=== PATIENT | male | born 1950 | race Caucasian/White ===

== ENCOUNTER 2023-08-15 08:52 | Outpatient (CLI) | payer MEDICARE, SELFPAY ==
--- NOTE | 2023-08-15 09:07 | ECG_ITS ---
Measurements Intervals [place] Rate: 93 P: 77 MD: 164 QRS: -46 QRSD: 150 T: 26 QT: 432 QTc: 539 Interpretive Statements SINUS RHYTHM VENTRICULAR PREMATURE COMPLEX RIGHT BUNDLE BRANCH BLOCK LEFT ANTERIOR FASCICULAR BLOCK BASELINE ARTIFACT- I, III, AVR, AVL, AVF, V1-V3 ABNORMAL ECG NO PREVIOUS ECG AVAILABLE FOR COMPARISON Electronically Signed On 08-15-2023 9:55:21 [employer] by Jackson Garcia D.O.
[2023-08-15 09:28] LABS: Basophils Percent Auto 0.5 % (0.2-1.2); Eosinophils Absolute Auto 0.3 K/mm3 (0-0.3); Eosinophils Percent Auto 4.1 % (0-4.4); Hematocrit 32.2 % (42.0-52.0); Hemoglobin 9.6 g/dL (14.0-18.0); Immature Granulocyte Absolute 0.09 K/mm3 (0.00-0.031); Immature Granulocyte Percent A 1.1 % (0-0.5); Lymphocytes Absolute Auto 1.11 K/mm3 (0.9-3.2); Lymphocytes Percent Auto 13.4 % (18.3-44.2); Mean Corpuscular HGB Conc 29.8 g/dl (32-36); Mean Corpuscular Hemoglobin 27.7 pg (26-34); Mean Corpuscular Volume 92.8 fl (80-100); Monocytes Absolute Auto 0.9 K/mm3 (0.1-0.6); Monocytes Percent Auto 10.9 % (2.6-8.5); Neutrophils Absolute Auto 5.8 K/mm3 (1.3-6.7); Platelet Count Result 265 k/mm3 (150-375); Red Blood Count 3.47 M/mm3 (4.6-6.20); Red Cell Distribution Width 16.7 % (11.5-14.5); White Blood Count 8.3 K/mm3 (4.5-10.0)
[2023-08-15 09:37] LABS: Anion Gap 12 mmol/L (8-16); Blood Urea Nitrogen 46 mg/dL (9-20); Carbon Dioxide 23 mmol/L (22-30); Chloride 98 mmol/L (98-107); Estimated Glomerular Filt Rate 16; Glucose 336 mg/dL (65-110); Potassium 3.4 mmol/L (3.4-5.0); Sodium 133 mmol/L (137-145)
[2023-08-15 09:38] LABS: INR 1.1; Prothrombin Time 14.3 Seconds (11.1-14.7)
[2023-08-15 09:39] LABS: Partial Thromboplastin Time 32.3 SECONDS (22.3-36.8)
== END 2023-08-15 08:53 | disposition home or self-care (01) ==
LOC: ANHSURGERY 08:59
PROVIDERS: PCP Family Medicine Sports Medicine; Visit Provider Urology
DX: Z01.818 Encounter for other preprocedural examination (principal); I45.2 Bifascicular block; R94.31 Abnormal electrocardiogram [ECG] [EKG]; I10 Essential (primary) hypertension; N40.0 Benign prostatic hyperplasia without lower urinary tract symptoms
CPT/HCPCS: 36415; 80048; 85025; 85610; 85730; 87086; 87088; 93005

== ENCOUNTER 2023-08-22 00:31 | Day surgery (SDC) | payer MEDICARE, SELFPAY ==
[2023-08-14 12:18] VITALS: BMI 20.9
--- NOTE | 2023-08-14 12:45 | PC.NURSE ---
Report to the Outpatient Waiting Room, entrance under the green pavilion located off [facility], at time __6:30AM on date __08/22/23 . Planned Procedure Time: __8:30AM . Time changes happen often and if your time is changed the preop area will call you the afternoon before. - You and your visitor will be asked to self-screen and do not enter if you have any COVID symptoms. - A mask is optional within the hospital at this time. Patients may have clear liquids (water, carbonated beverages, clear teas, apple juice) until 3 hours prior to surgery with a maximum of 20 ounces. - No food from midnight until time of surgery. Take the following medications with a SIP of water the morning of surgery: ___NONE DO NOT STOP ANY OF YOUR OTHER PRESCRIPTION MEDICATIONS PRIOR TO SURGERY ?EXCEPT THE FOLLOWING Medications to discontinue per physician ___HOLD ALL VITAMINS/SUPPLEMENTS 3 DAYS PRE-OP PER ANESTHESIA Date to take last dose__08/18/23 Please no make-up, nail [place], hairspray, perfume, deodorant, or body powder the day of surgery. No jewelry (including any body piercings) or valuables the day of surgery, leave them at home. Please take a shower or bath the night before, or the morning of, surgery with an antibacterial soap. Wear comfortable, loose fitting clothing. - Jewelry must be removed prior to entering the operating room. Rings and piercings that are not removed may be cut off. - The hospital will not accept responsibility for valuables. - Please leave all valuables, including medications, at home the day of surgery. If you are going home after surgery, a licensed lead driver must drive you home. - NO public transportation without another adult if you receive anesthesia. - We recommend that an adult stay with you for 24 hours following discharge. - We also recommend that you do not drive, make important decision, drink alcoholic beverages, or take any drugs that were not prescribed by your health care provider for at least 24 hours after your discharge time. Follow any additional instructions given to you from your surgeon. If you or anyone in your household have experienced Covid symptoms in the past week, please notify your surgeon or the nurse liaison at the phone number below for possible testing. Telephone instructions given to __PATIENT and asked if any additional questions and then verbalized understanding. Patient advised to call surgeon office or pre surgery nurse liaison [phone] if any additional questions.
--- NOTE | 2023-08-21 15:12 | WPDANESEPPF ---
Anes - Initial Pre Proc Eval Procedure: Operation Date: 08/22/23 08:30 Proposed Procedures p Trans Urethral Resection Prostate - Clovis Juan MD Date/Time: 08/21/23 15:12 Surgeon: Clovis Juan MD Pre Op Diagnosis: bph, retention of urine Patient Data Age: 73 Gender: M Height: 1.8 m Weight: 68 kg Allergies Allergy/AdvReac Type Severity Reaction Status Date / Time No Known Allergies Allergy Verified 08/14/23 12:11 Home Medications Medication Instructions Recorded Confirmed Type adalimumab 40 mg/0.8 mL 40 mg subcut [id number] 08/14/23 08/14/23 History subcutaneous pen kit (Humira Pen) allopurinol 100 mg tablet 100 mg PO HS 08/14/23 08/14/23 History cholecalciferol (vitamin D3) 50 50 mcg PO DAILY 08/14/23 08/14/23 History mcg (2,000 unit) capsule collagenase clostridium histo. 250 1 applic topical DAILY 08/14/23 08/14/23 History unit/gram topical ointment (Santyl) glipizide 5 mg tablet 5 mg PO BID 08/14/23 08/14/23 History pantoprazole 40 mg tablet,delayed 40 mg PO DAILY PRN Indigestion 08/14/23 08/14/23 History release pioglitazone 30 mg tablet 30 mg PO QAM 08/14/23 08/14/23 History semaglutide 1 mg/dose (4 mg/3 mL) 1 mg subcut WEEKLY 08/14/23 08/14/23 History subcutaneous pen injector (Ozempic) Patient hx anesthesia problems: none Family hx anesthesia problems: none Results Review: All pre-operative results and documents have been reviewed as part of the pre-operative evaluation. [facility] Past Medical History Medical History (Updated 08/21/23 @ 15:13 by Mike Vanegas DO) CKD (chronic kidney disease) COPD (chronic obstructive pulmonary disease) Diabetes type 2, controlled GERD (gastroesophageal reflux disease) Hypertension Social History Social History Smoking packs per day: 1 Smoking cigarettes per day: 20.0 Years smoked: 20 Smoking pack-years: 20.00 Smoking status: Former smoker Tobacco type: cigarettes Smoking end date: 08/07/84 Living arrangements: with family Additional living arrangements comments: Spiritual care concerns: No Anes - Eval Final PreProcedure Day of Procedure 08/21/23 15:12 Patient weight: normal Heart: regular rate and rhythm Lungs: clear to auscultation Airway: Mallampati scale class II and special considerations poor dentition Neurological: alert and oriented Last oral intake: >/= 8 hours ASA classification: III Emergent: no Anesthetic plan: proceed Anesthesia type and monitoring: general LMA and standard monitoring Results Review: All pre-operative results and documents have been reviewed as part of the pre-operative evaluation. Informed Consent: The patient's anesthetic plan and its attendant risks and benefits were discussed with the patient/family/POA. Questions were solicited and answers provided to the satisfaction of the patient/family/POA.
[2023-08-22] VITALS (13 sets, daily range): BP systolic 102–145; BP diastolic 58–97; PULSE 74–98; RESP 14–24; TEMP 36.1–36.9; O2SAT 97–100
[2023-08-22 07:09] LABS: Glucose Point of Care 176 mg/dl (65-105)
--- NOTE | 2023-08-22 07:34 | WPDHPUPDATE1 ---
History and Physical Update Update Date/Time: 08/22/23 07:34 History and Physical has been reviewed, including an updated exam of the patient. There are NO changes in the patient's condition. Risks, benefits, and alternatives have been discussed and questions answered. Patient agrees to proceed with procedure. Proceed with turp
[2023-08-22] MEDS: ceFAZolin 2 GM/D5W 50 ML 2 GM/50 ML BAG IVPB (08:32)
--- NOTE | 2023-08-22 08:55 | SUR.OPER ---
ARRIVED WITH LEG WOODY BAG AND DC'D PRIOR TO PREP 200ML CLEAR YELLOW U/A
--- NOTE | 2023-08-22 09:25 | W.PM.PROC2 ---
Procedure Note - Detailed Date of Procedure 08/22/23 Pre-op Diagnosis bph, retention of urine Post-op Diagnosis Same Procedure Performed Transurethral resection of prostate Surgeon Clovis Juan MD Anesthesia General Description of Procedure Patient is taken to the operative suite correctly identified. Once anesthesia was obtained was placed in dorsal lithotomy position and prepped and draped usual sterile fashion. Twenty-four Jordanian resectoscope sheath was inserted. His prostate did not appear overly obstructive. He did have a median lobe. In his urodynamics did show obstructive process. We thus resected from the bladder neck to the verumontanum. We did this circumferentially. The ureteral orifices and external sphincter were visualized at all times. There was no injury to either. Chips were retrieved and sent for analysis. Ball electrode was used for hemostasis. 2% viscous lidocaine was inserted into the urethra. Twenty-four Jordanian 3 was placed with 20 cc in the balloon connected to continuous bladder irrigation. Patient is taken recovery stable condition. This completes dictation. Please send a copy of op note to my office. Estimated Blood Loss 25 Drains Yes Packing No Pathology Yes Complications No immediate complications Condition Stable Disposition PACU
[2023-08-22] MEDS: LACTATED RINGERS 1,000 ML 30 ML IV CONT ×2 (09:35)
[2023-08-22] MEDS: fentaNYL CITRATE INJ (*CRX) 100 MCG/2 ML VIAL 25 MCG IV PUSH (09:52)
--- NOTE | 2023-08-22 11:15 | ADMGEN ---
This patient, Ludwig Ríos, was admitted to [facility] Surg Room 306-02. Patient/family oriented to hospital policies and general routines including ID bracelet, bed and alarms, visiting hours, pain management, procedures, bathroom and other care routines, personal items, smoking policy, room service/diet, and visiting hours. Information on how to activate the Rapid Response Team has been discussed. Patient/Family are encouraged to report perceived risks to care and to ask questions if they do not understand what they are told or what they should do.
[2023-08-22 11:28] LABS: Glucose Point of Care 189 mg/dl (65-105)
[2023-08-22 11:45] LABS: Glucose Point of Care 156 mg/dl (65-105)
[2023-08-22] MEDS: HYDROcodone/acetaminophen (*CRX) 5-325 MG TABLET 1 TAB PO (13:43)
[2023-08-22 16:28] LABS: Glucose Point of Care 371 mg/dl (65-105)
[2023-08-22] MEDS: ceFAZolin 1 GM/NS 50 ML 1 GM/50 ML BAG IVPB (16:56)
[2023-08-22] MEDS: glipiZIDE 5 MG TABLET PO (17:41)
[2023-08-22] MEDS: INSULIN ASPART (*BKC) 100 UNITS/ML SUB-Q ×2 (17:46→20:15)
[2023-08-22 21:25] LABS: Glucose Point of Care 342 mg/dl (65-105)
[2023-08-23] MEDS: ceFAZolin 1 GM/NS 50 ML 1 GM/50 ML BAG IVPB (01:00)
[2023-08-23] MEDS: HYDROcodone/acetaminophen (*CRX) 5-325 MG TABLET 1 TAB PO ×2 (01:06→13:18)
[2023-08-23 01:10] VITALS: BP 125/54; PULSE 102; RESP 18; TEMP 36.3; O2SAT 98
[2023-08-23 05:25] VITALS: BP 121/61; PULSE 90; RESP 18; TEMP 36.7; O2SAT 98
[2023-08-23 06:12] LABS: Hematocrit 27.6 % (42.0-52.0); Hemoglobin 8.6 g/dL (14.0-18.0)
[2023-08-23 06:24] LABS: Anion Gap 7 mmol/L (8-16); Blood Urea Nitrogen 50 mg/dL (9-20); Calcium 8.5 mg/dL (8.4-10.2); Carbon Dioxide 24 mmol/L (22-30); Chloride 99 mmol/L (98-107); Estimated CRCL calculation 18 ml/min; Estimated Glomerular Filt Rate 19; Glucose 277 mg/dL (65-110); Potassium 4.3 mmol/L (3.4-5.0); Sodium 130 mmol/L (137-145)
[2023-08-23 07:36] LABS: Glucose Point of Care 255 mg/dl (65-105)
[2023-08-23 08:00] VITALS: BP 118/65; PULSE 78; RESP 18; TEMP 36.3; O2SAT 100
--- NOTE | 2023-08-23 08:05 | WPDANESPN ---
Anes - Prog Note Post-Op Date/Time: 08/23/23 08:05 Cardiovascular status: normal Respiratory status: normal Airway patency: baseline Mental status: baseline Post-Op hydration status: normal Vital Signs: Last Vital Signs Temp 36.7 C 08/23/23 05:25 Pulse 90 08/23/23 05:25 Resp 18 08/23/23 05:25 BP 121/61 08/23/23 05:25 Pulse Ox 98 08/23/23 05:25 O2 Del Method Room Air 08/22/23 10:50 O2 Flow Rate 10 08/22/23 09:35 Pain Score (VAS): 08/16 I/O: Intake & Output 08/22/23 08/23/23 08/23/23 23:59 07:59 15:59 Intake Total 2210 7372 Output Total 4050 5300 Balance -1840 2072 Laboratory Tests 08/23/23 05:41 08/23/23 05:41 08/22/23 08/22/23 08/22/23 09:44 11:26 16:20 Hgb Hct Sodium Potassium Chloride Carbon Dioxide Anion Gap BUN Creatinine Estim Creat Clear Calc Estimated GFR Glucose POC Capillary Glucose 156 H 189 H 371 H Calcium 08/22/23 08/23/23 08/23/23 20:07 05:41 07:32 Hgb 8.6 L Hct 27.6 L Sodium 130 L Potassium 4.3 Chloride 99 Carbon Dioxide 24 Anion Gap 7 L BUN 50 H Creatinine 3.20 H Estim Creat Clear Calc 18 Estimated GFR 19 L Glucose 277 H POC Capillary Glucose 342 H 255 H Calcium 8.5 Post-procedural complaints: none Patient Feedback: Patient satisfied with anesthetic care.
--- NOTE | 2023-08-23 08:17 | WPDUROPN2 ---
Progress Note: A&P Assessment and Plan (1) BPH (benign prostatic hyperplasia): Code(s): N40.0 - Benign prostatic hyperplasia without lower urinary tract symptoms Status: Acute Assessment and Plan: Doing well at this time. Turn CBI off. If remains clear will discharge home with Stokes catheter and have it removed on Monday or Monday. Patient will go home with pain meds and antibiotics. Subjective Subjective Date/Time Seen: 08/23/23 08:17 Post Op day: 1 (Prostate resection) Principal diagnosis: BPH/retention Interval history: Ludwig is doing well this morning. His urine is fairly clear with very minimal CBI. Will wean to off and possibly discharge later this afternoon Review of Systems Review of Systems: All systems reviewed & are unremarkable except as noted in HPI and below Exam Const: General: cooperative and comfortable Resp: Effort & Inspection: normal respiratory effort Cardio: Rate: regular rate Rhythm: regular rhythm Urinary Catheter: Urinary Catheter: patent and draining and urine clear Objective Data Vital Signs Vital Signs: Vital Signs - 24 hr 08/22/23 09:35 08/22/23 09:50 08/22/23 10:05 Temperature 36.4 C L Pulse Rate 96 82 82 Respiratory Rate 20 14 24 H Blood Pressure 102/77 122/66 131/64 Pulse Oximetry 100 97 98 Oxygen Delivery Simple Face Mask Room Air Room Air Oxygen Flow Rate 08/22/23 10:20 08/22/23 10:35 08/22/23 10:50 Temperature Pulse Rate 78 74 76 Respiratory Rate 17 17 16 Blood Pressure 142/68 H 145/79 H 138/69 Pulse Oximetry 98 99 99 Oxygen Delivery Room Air Room Air Room Air Oxygen Flow Rate 08/22/23 11:15 08/22/23 11:30 08/22/23 12:00 Temperature 36.4 C 36.4 C 36.1 C L Pulse Rate 77 76 74 Respiratory Rate 14 16 16 Blood Pressure 140/62 141/72 H 136/66 Pulse Oximetry 100 99 100 Oxygen Delivery Oxygen Flow Rate 08/22/23 13:00 08/22/23 15:56 08/22/23 22:50 Temperature 36.4 C 36.8 C 36.9 C Pulse Rate 80 85 98 Respiratory Rate 18 16 18 Blood Pressure 125/58 L 116/70 127/97 H Pulse Oximetry 98 97 97 Oxygen Delivery Oxygen Flow Rate 08/23/23 01:10 08/23/23 05:25 Temperature 36.3 C L 36.7 C Pulse Rate 102 H 90 Respiratory Rate 18 18 Blood Pressure 125/54 L 121/61 Pulse Oximetry 98 98 Oxygen Delivery Oxygen Flow Rate Intake/Output Intake/Output: Intake & Output 08/20/23 08/21/23 08/22/23 08/23/23 23:59 23:59 23:59 23:59 Intake Total 2800 7372 Output Total 8900 5300 Balance -6100 2072 Meds/Results Medications: Active Medications Generic Name Dose Route Start Last Admin Trade Name Freq PRN Reason Stop Dose Admin Hydrocodone Bitart/Acetaminophen 1 tab 08/22/23 11:03 08/23/23 01:06 Hydrocodone/Acetaminophen (*Crx) 5-325 Mg Tablet PO 1 tab Q4H PRN Administration Pain Rated 1-6 Cephalexin HCl 500 mg 08/23/23 09:00 Cephalexin 500 Mg Capsule PO QID CHINO Dextrose 12.5 gm 08/22/23 16:37 Dextrose 50% 25 Gm/50 Ml Syringe IV PUSH PRN PRN Hypoglycemia Protocol Docusate Sodium 100 mg 08/22/23 17:00 08/22/23 17:45 Docusate Sodium 100 Mg Capsule PO Not Given BID CHINO Glipizide 5 mg 08/22/23 16:30 08/22/23 17:41 Glipizide 5 Mg Tablet PO 5 mg BIDAC CHINO Administration Glucagon 1 mg 08/22/23 16:37 Glucagon For Inj 1 Mg Vial IM PRN PRN Hypoglycemia Protocol Glucose 15 gm 08/22/23 16:37 Glucose Oral Gel 15 Gm Of Glucse In 37.5 Gm Tube PO PRN PRN Hypoglycemia Protocol Hyoscyamine 0.125 mg 08/22/23 11:03 Hyoscyamine Sulfate 0.125 Mg Tablet SUBLINGUAL Q6H PRN Bladder Spasm Dextrose 1,000 mls @ 100 mls/hr 08/22/23 16:37 Dextrose 5% 1,000 Ml IVPB PRN PRN Hypoglycemia Protocol Insulin Aspart 2 - 5 units 08/22/23 17:00 08/22/23 17:46 Insulin Aspart (*Bkc) 100 Units/Ml SUB-Q 5 units TIDWM CHINO Administration Protocol Insulin Aspart 1
[2023-08-23] MEDS: PIOGLITAZONE HCL 30 MG TABLET PO (08:46)
[2023-08-23] MEDS: glipiZIDE 5 MG TABLET PO (08:46)
[2023-08-23] MEDS: CEPHALEXIN 500 MG CAPSULE PO ×2 (08:46→13:18)
[2023-08-23] MEDS: DOCUSATE SODIUM 100 MG CAPSULE PO (08:46)
[2023-08-23] MEDS: INSULIN ASPART (*BKC) 100 UNITS/ML SUB-Q ×2 (08:46→11:28)
[2023-08-23 11:30] LABS: Glucose Point of Care 354 mg/dl (65-105)
[2023-08-23 11:59] VITALS: BP 108/54; PULSE 87; RESP 18; TEMP 36.6; O2SAT 99
--- NOTE | 2023-08-23 13:11 | PM.DS ---
DS: Admitting Diagnosis Discharge Date 08/23/2023 Admitting Diagnosis BPH/urinary retention DS: Discharge Diagnosis Discharge Diagnosis (1) BPH (benign prostatic hyperplasia): Code(s): N40.0 - Benign prostatic hyperplasia without lower urinary tract symptoms Status: Acute Assessment and Plan: Discharged home with Stokes catheter. Plan on removal Monday or Monday. DS: Summary Hospital Course Hospital Course: Patient had an uneventful transurethral resection of his prostate. Postoperatively he did well. CBI was stopped on postoperative day 1. He is being discharged home with his Stokes catheter. Pathology is pending at time of discharge Time Spent with Patient Time attestation: Total time spent providing and/or coordinating discharge services: DS: Data Data Completed and Pending Completed studies during hospitalization: Pending at discharge 08/22/23 09:18 Surgical [PTH] Routine Labs on day of discharge: Labs from last 24 hours 08/23/23 08/23/23 08/23/23 11:15 07:32 05:41 Hgb 8.6 L Hct 27.6 L Sodium 130 L Potassium 4.3 Chloride 99 Carbon Dioxide 24 Anion Gap 7 L BUN 50 H Creatinine 3.20 H Estim Creat Clear Calc 18 Estimated GFR 19 L Glucose 277 H POC Capillary Glucose 354 H 255 H Calcium 8.5 08/22/23 08/22/23 20:07 16:20 Hgb Hct Sodium Potassium Chloride Carbon Dioxide Anion Gap BUN Creatinine Estim Creat Clear Calc Estimated GFR Glucose POC Capillary Glucose 342 H 371 H Calcium Discharge Plan Discharge Patient Disposition: Home, Self-Care Stand Alone Forms: General Discharge Instructions Discharge Medications: No Action pantoprazole 40 mg tablet,delayed release (DR/EC) 40 mg PO DAILY PRN (Reason: Indigestion) glipizide 5 mg tablet 5 mg PO BID Humira Pen 40 mg/0.8 mL Pen Injector Kit 40 mg SUBCUT [id number] Rx Instructions: ONCE EVERY 2 WEEKS Ozempic 1 mg/dose (4 mg/3 mL) Pen Injector 1 mg SUBCUT WEEKLY Rx Instructions: SUNDAYS cholecalciferol (vitamin D3) 50 mcg (2,000 unit) Capsule 50 mcg PO DAILY Santyl 250 unit/gram ointment 1 applic TOPICAL DAILY pioglitazone 30 mg Tablet 30 mg PO QAM allopurinol 100 mg Tablet 100 mg PO HS
== END 2023-08-23 13:50 | disposition home or self-care (01) ==
LOC: ANHSURGERY 10:45 → ANH3MEDSUR 11:07
PROVIDERS: PCP Family Medicine Sports Medicine; Visit Provider Urology
PROC: 0VT08ZZ Resection of Prostate, Via Natural or Artificial Opening Endoscopic (ICD-10-PCS; CPT 52601; principal; 2023-08-22 08:30)
DX: N40.1 Benign prostatic hyperplasia with lower urinary tract symptoms (principal); R33.9 Retention of urine, unspecified; R35.1 Nocturia; I10 Essential (primary) hypertension; E11.9 Type 2 diabetes mellitus without complications
CPT/HCPCS: 52601; 36415; 80048; 82948; 85014; 85018; 85025; 85610; 85730; 87086; 88305; 93005; A9270; J0690; J1100; J1815; J2405; J2704; J3010; J7120